=== PATIENT | female | born 1950 | race Caucasian/White ===

== ENCOUNTER → 2016-12-03 | Outpatient (CLI) | payer MEDICARE, BC ==
[~2016-12-03] MED LIST: ASPIRIN 32325 MG/TAB PO; BIOFLAX1000 MG PO; DITROPAN XL5 MG PO; FLEXERIL 1010 MG/TAB PO; FLEXERIL10 MG PO; HCTZ 25MG25 MG PO; LISINOPRIL20 MG PO; LORTAB 5/500 501 TAB PO; MOBIC7.5 M1 PO; MULTIMINERALS PO; MULTIPLE VITAMI1 CAP PO; NITROSTAT0.4 MG/TAB SL; OMEPRAZOLE D/R20 MG PO; PRAVACHOL40 MG PO; PRILOSEC 20MG20 MG PO; TYLENOL 325MG325 MG PO; WELLBUTRIN XL300 M1 PO; WELLBUTRIN XL300 MG PO; [UNRECOGNIZED DRUG - OTHER] PO
== END ==
LOC: MC.RAD 07:52
DX: Z12.31 Encounter for screening mammogram for malignant neoplasm of breast (principal); Z90.13 Acquired absence of bilateral breasts and nipples

== ENCOUNTER 2017-05-17 17:28 | Emergency (ER) | payer OTHER, MEDICARE, BC ==
[~2017-05-17] VITALS: Ht 167.6 cm; Wt 81.8 kg
[2017-05-17 17:31] VITALS: TEMP 98.1
[2017-05-17 18:31] LABS: BASO # 0.1 (0.0-0.2); BASO % 0.7 % (0.0-2.0); EOS # 0.2 (0.0-0.7); EOS % 2.8 % (0-4.0); GRAN # 3.8 (1.4-6.5); GRAN % 56.1 % (42.2-75.2); HEMATOCRIT 41.1 % (37.0-47.0); HEMOGLOBIN 13.5 g/dl (12.5-16.0); LYMPH # 2.1 (1.2-3.4); MEAN CELL VOLUME 94 fl (80.0-100.0); MEAN CORPUSCULAR HEMOGLOBIN 31 pg (27.0-31.0); MEAN CORPUSCULAR HGB CONC 33 g/dl (33.0-37.0); MEAN PLATELET VOLUME 10.1 fl (7.4-10.4); MONO # 0.5 (0.1-0.6); MONO % 8.1 % (1.7-9.3); PLATELET COUNT 264 K/mm3 (130-400); RED BLOOD COUNT 4.36 M/mm3 (4.10-5.30); REDCELL DISTRIBUTION WIDTH-CV 12.9 % (11.5-14.5)
[2017-05-17 19:11] LABS: ALANINE AMINOTRANSFERASE 32 U/L (9-52); ALBUMIN 4.5 gm/dL (3.5-5.0); ALKALINE PHOSPHATASE 101 U/L (50-136); ANION GAP 9 mmol/L (7-16); AST,SGOT 28 U/L (15-37); BILIRUBIN,TOTAL 0.3 mg/dL (0.0-1.0); BLOOD UREA NITROGEN 15 mg/dL (7-17); CALCIUM 9.8 mg/dL (8.4-10.2); CARBON DIOXIDE 24 mmol/L (22-30); CHLORIDE 104 mmol/L (98-107); GLUCOSE 100 mg/dL (74-106); POTASSIUM 3.8 mmol/L (3.4-5.0); SODIUM 138 mmol/L (137-145); TOTAL PROTEIN 7.2 gm/dL (6.4-8.2)
[2017-05-17 19:30] LABS: TROPONIN-I < 0.012 ng/mL (0.000-0.034)
[2017-05-17] MEDS ORDERED: NORVASC 5MG5 MG/TAB PO (19:56)
[2017-05-17] MEDS ORDERED: NORCO 325 MG-51 TAB PO (19:56)
[2017-05-17 19:58] VITALS: BP 160/86; PULSE 71
== END 2017-05-17 19:58 | disposition home or self-care (01) ==
LOC: COL.ER 17:28
PROVIDERS: Emergency Medicine
DX: S16.1XXA Strain of muscle, fascia and tendon at neck level, initial encounter (principal); I10 Essential (primary) hypertension; K21.9 Gastro-esophageal reflux disease without esophagitis; Z79.82 Long term (current) use of aspirin; V89.2XXA Person injured in unspecified motor-vehicle accident, traffic, initial encounter

== ENCOUNTER → 2017-08-11 | Outpatient (CLI) | payer MEDICARE, BC ==
[~2017-08-11] MED LIST changes: +NORCO 325 MG-51 TAB PO; +NORVASC 5MG5 MG/TAB PO
== END ==
LOC: COL.VAS 09:18
DX: I65.22 Occlusion and stenosis of left carotid artery (principal)

== ENCOUNTER → 2017-12-24 | Outpatient (CLI) | payer MEDICARE, BC | LOC: MC.RAD 10:43 | DX: Z12.31 Encounter for screening mammogram for malignant neoplasm of breast (principal); Z98.890 Other specified postprocedural states ==

== ENCOUNTER → 2019-01-16 | Outpatient (CLI) | payer MEDICARE, BC | LOC: MC.RAD 09:12 | DX: Z12.31 Encounter for screening mammogram for malignant neoplasm of breast (principal) ==

== ENCOUNTER → 2019-10-02 | Outpatient (CLI) | payer MEDICARE, BC | LOC: COL.RAD 10:49 | DX: R31.0 Gross hematuria (principal) ==

== ENCOUNTER → 2020-02-07 | Outpatient (CLI) | payer MEDICARE, BC | LOC: MC.RAD 01-18 09:30 | DX: Z12.31 Encounter for screening mammogram for malignant neoplasm of breast (principal) ==

== ENCOUNTER → 2020-04-16 | Outpatient (CLI) | payer MEDICARE, BC | LOC: COL.RAD 07:46 | DX: R74.8 Abnormal levels of other serum enzymes (principal); R07.9 Chest pain, unspecified ==

== ENCOUNTER 2020-06-26 10:29 | Observation (INO) | payer MEDICARE, BC ==
[~2020-06-26] VITALS: Ht 167.6 cm; Wt 84.7 kg
[~2020-06-26 10:29] MED LIST changes: +DITROPAN 5MG TAB5 MG PO; -DITROPAN XL5 MG PO; -OMEPRAZOLE D/R20 MG PO
[2020-06-26 10:51] LABS: BASO % 0.7 % (0.0-2.0); EOS # 0.3 (0.0-0.7); EOS % 4.4 % (0-4.0); GRAN # 3.2 (1.4-6.5); GRAN % 56.3 % (42.2-75.2); HEMATOCRIT 38.8 % (37.0-47.0); HEMOGLOBIN 12.5 g/dl (12.5-16.0); LYMPH # 1.7 (1.2-3.4); LYMPH % 29.6 % (20.0-51.0); MEAN CELL VOLUME 92 fl (80.0-100.0); MEAN CORPUSCULAR HEMOGLOBIN 30 pg (27.0-31.0); MEAN CORPUSCULAR HGB CONC 32 g/dl (33.0-37.0); MEAN PLATELET VOLUME 9.6 fl (7.4-10.4); MONO # 0.5 (0.1-0.6); MONO % 8.8 % (1.7-9.3); PLATELET COUNT 250 K/mm3 (130-400); RED BLOOD COUNT 4.22 M/mm3 (4.10-5.30); REDCELL DISTRIBUTION WIDTH-CV 12.8 % (11.5-14.5)
[2020-06-26 10:59] LABS: INR 0.9 (0.8-3.0); PROTHROMBIN TIME 10.5 SECONDS (9.7-12.8)
[2020-06-26 11:02] LABS: ALBUMIN 4.3 gm/dL (3.5-5.0); BILIRUBIN,TOTAL 0.4 mg/dL (0.0-1.0); CALCIUM 9.5 mg/dL (8.4-10.2); CREATININE, serum 0.94 (0.52-1.25); POTASSIUM 4.1 mmol/L (3.4-5.0); TOTAL PROTEIN 7.4 gm/dL (6.4-8.2)
[2020-06-26] MEDS ORDERED: WELLBUTRIN XL150 MG PO (12:15)
[2020-06-26] MEDS ORDERED: MOBIC15 MG PO (12:18)
[2020-06-26 12:19] LABS: COLLECTION METHOD CLEAN CATCH
[2020-06-26 12:27] LABS: PH 7 (5-8); SQUAMOUS EPITHELIAL None Seen /hpf; URINE APPEARANCE Clear; URINE BACTERIA None Seen /hpf; URINE BILIRUBIN Negative (NEGATIVE); URINE BLOOD Negative (NEGATIVE); URINE COLOR Straw; URINE GLUCOSE Negative (NEGATIVE); URINE KETONE Negative (NEGATIVE); URINE LEUKOCYTE ESTERASE Negative (NEGATIVE); URINE NITRATE Negative (NEGATIVE); URINE PROTEIN(semi-quant) Negative (NEGATIVE); URINE RBC 0-2 /hpf; URINE UROBILINOGEN Negative (NEGATIVE)
--- NOTE | 2020-06-26 13:00 | NUR ---
Admitt assessment completed, alert/oriented, vital signs stable, denies any chest pain or discomfort currently/ Nitro paste in place, heart RRR/distal pulses are palpable, lung SCTA/ no resp.difficulty noted, Heparing gtt infusing per protocol, home meds/ allergies/ pharmacy reviewed with the patient, she is independent in her room, notified hospitlaist of her arrival, denies other needs, will continue to monitor, on tele
[2020-06-26] MEDS ORDERED: LIPITOR 40MG TA40 MG PO (13:38)
[2020-06-26] MEDS ORDERED: BENICAR 20MG TA20 MG PO (13:41)
[2020-06-26] MEDS ORDERED: MELATONIN5 M1 PO (13:42)
[2020-06-26] MEDS ORDERED: DAZIDOX10 MG PO (13:43)
[2020-06-26] MEDS ORDERED: FLEXERIL 1010 MG/TAB PO (13:43)
[2020-06-26 13:52] VITALS: BP 119/61; PULSE 79; TEMP 98
[2020-06-26 15:43] VITALS: BP 126/69; PULSE 72; TEMP 97.6
--- NOTE | 2020-06-26 19:10 | NUR ---
Received report from Rusty. Patient awake in bed. She is waiting for her dinner tray. She is on heparin drip infusing on her right AC. She denies pain. Instructed her to be NPO by midnight but she can take her morning meds with sips of water. Patient verbalizes understanding.
--- NOTE | 2020-06-26 20:03 | NUR ---
PATIENT DECLINED OUR CPAP. WILL WEAR OXYGEN AND KEEP HOB ELEVATED.
[2020-06-26 20:15] VITALS: BP 126/54; PULSE 71; TEMP 97.3
[2020-06-26 23:44] VITALS: BP 96/40; PULSE 72; TEMP 97.9
[2020-06-26 23:56] VITALS: BP 115/46
[2020-06-27] VITALS (7 sets, daily range): BP systolic 98–144; BP diastolic 55–78; PULSE 68–77; TEMP 97.5–97.8
--- NOTE | 2020-06-27 06:16 | NUR ---
Patient had uneventful night. She denies chest pain. Maintained on NPO. Instructed to void before she goes down for her procedure. Latest heparin drip at 8ml/hr. She did her oral care for this morning. She was wearing O2 at 2lpm while asleep.
[2020-06-27 06:19] LABS: HEMATOCRIT 34.7 % (37.0-47.0); HEMOGLOBIN 11.1 g/dl (12.5-16.0); MEAN CELL VOLUME 93 fl (80.0-100.0); MEAN CORPUSCULAR HEMOGLOBIN 30 pg (27.0-31.0); MEAN CORPUSCULAR HGB CONC 32 g/dl (33.0-37.0); MEAN PLATELET VOLUME 10.1 fl (7.4-10.4); PLATELET COUNT 218 K/mm3 (130-400); RED BLOOD COUNT 3.75 M/mm3 (4.10-5.30); REDCELL DISTRIBUTION WIDTH-CV 12.8 % (11.5-14.5)
[2020-06-27 06:26] LABS: PROTHROMBIN TIME 11.2 SECONDS (9.7-12.8)
[2020-06-27 06:29] LABS: CALCIUM 9.2 mg/dL (8.4-10.2); CREATININE, serum 0.87 (0.52-1.25); MAGNESIUM 2.1 mg/dL (1.6-2.3)
--- NOTE | 2020-06-27 08:30 | NUR ---
Patient going for heart cath at this time, consent signed she has been NPO, daughter present
--- NOTE | 2020-06-27 09:30 | NUR ---
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
--- NOTE | 2020-06-27 10:15 | NUR ---
Initial visit; Patient thanked [employer] for looking in on her and offering God's blessings and for keeping her in [employer]'s prayers.
[2020-06-27] MEDS ORDERED: PROTONIX 40MG T40 MG PO (11:51)
[2020-06-27] MEDS ORDERED: ASPIRIN E.C. 8181 MG PO (11:51)
--- NOTE | 2020-06-27 12:06 | NUR ---
Patient continues to do well post cath, TR band deflated no oozing or bleeding noted at this time will continue to monitor
--- NOTE | 2020-06-27 13:04 | NUR ---
Patient discharging home, discussed d/c orders with her and her daughter, instructed to follow up with PCP and Cards as we have scheduled for her, isntructed to take meds as prescribed/ discussed med changes to PPI and ASA and to stop NSAIDS for now, insturcted to take EGD reports from past with her to PCP appt., disscussed activty and bathing restrictions for her right arm/ radial access site, TR band removed/ no signs of oozing or bleeding and covered with bandaid, explained to keep covered x 3 days, IV and tele removed, leaving with daughter, Student nurse escorting them out the door
--- NOTE | 2020-06-27 13:59 | NUR ---
Primary nurse was assisted with [id number] patient care by [employer] student Chi Mercedes and [employer] [employer] instructor Jenifer Dugan MSN, RN
== END 2020-06-27 13:11 | disposition home or self-care (01) ==
LOC: COL.ER 10:29 → MEDICAL 12:30 → COL.ER 12:30 → MEDICAL 06-27 09:27
PROVIDERS: Emergency Medicine; Physician Assistant; ADMIT Family Medicine
DX: R07.89 Other chest pain (principal); I10 Essential (primary) hypertension; E78.5 Hyperlipidemia, unspecified; G47.00 Insomnia, unspecified; G47.33 Obstructive sleep apnea (adult) (pediatric); K21.9 Gastro-esophageal reflux disease without esophagitis; M54.5 Low back pain; G89.29 Other chronic pain; Z20.822 Contact with and (suspected) exposure to COVID-19; I07.1 Rheumatic tricuspid insufficiency; R32 Unspecified urinary incontinence; F32.9 Major depressive disorder, single episode, unspecified; F41.9 Anxiety disorder, unspecified; M19.90 Unspecified osteoarthritis, unspecified site; E66.9 Obesity, unspecified; Z68.29 Body mass index [BMI] 29.0-29.9, adult; Z79.82 Long term (current) use of aspirin; Z87.891 Personal history of nicotine dependence; Z79.899 Other long term (current) drug therapy; Z85.828 Personal history of other malignant neoplasm of skin; Z79.1 Long term (current) use of non-steroidal anti-inflammatories (NSAID)
CPT/HCPCS: 99239; G0378; J1644; J2250; J3010

== ENCOUNTER → 2021-02-17 | Outpatient (CLI) | payer MEDICARE, BC ==
[~2021-02-17] MED LIST changes: +ASPIRIN E.C. 8181 MG PO; +BENICAR 20MG TA20 MG PO; +DAZIDOX10 MG PO; +LIPITOR 40MG TA40 MG PO; +MELATONIN5 M1 PO; +MOBIC15 MG PO; +PROTONIX 40MG T40 MG PO; +WELLBUTRIN XL150 MG PO
== END ==
LOC: MC.RAD 10:43
DX: Z12.31 Encounter for screening mammogram for malignant neoplasm of breast (principal)